=== PATIENT | male | born 1940 | race Caucasian/White ===

== ENCOUNTER 2016-03-19 19:19 | Outpatient (CLI) | payer MEDICARE | END 2016-03-19 19:20 | disposition home or self-care (01) | DX: G47.33 Obstructive sleep apnea (adult) (pediatric) (principal); G47.61 Periodic limb movement disorder; Z68.33 Body mass index [BMI] 33.0-33.9, adult ==

== ENCOUNTER 2016-03-28 10:05 | Outpatient (CLI) | payer MEDICARE | END 2016-03-28 10:06 | disposition home or self-care (01) | DX: I25.10 Atherosclerotic heart disease of native coronary artery without angina pectoris (principal); E78.5 Hyperlipidemia, unspecified; I10 Essential (primary) hypertension; R53.83 Other fatigue; G47.33 Obstructive sleep apnea (adult) (pediatric); Z98.61 Coronary angioplasty status ==

== ENCOUNTER 2016-05-22 13:11 | Outpatient (CLI) | payer MEDICARE | END 2016-05-22 13:12 | disposition home or self-care (01) | DX: G47.33 Obstructive sleep apnea (adult) (pediatric) (principal); G47.61 Periodic limb movement disorder | CPT/HCPCS: 99215; G0463 ==

== ENCOUNTER 2016-07-10 10:45 | Outpatient (CLI) | payer MEDICARE | END 2016-07-10 10:46 | disposition home or self-care (01) | DX: E29.1 Testicular hypofunction (principal) ==

== ENCOUNTER → 2016-09-30 | Outpatient (CLI) | payer MEDICARE ==
[2016-09-30 13:10] LABS: BASOPHILS # (AUTO) 0.1 10^3/uL (0.0-0.1); BASOPHILS % (AUTO) 1.2 %; EOSINOPHILS # (AUTO) 0.2 10^3/uL (0.0-0.7); EOSINOPHILS % (AUTO) 4.4 %; HCT - HEMATOCRIT 51.6 % (42.0-52.0); HGB - HEMOGLOBIN 17.6 g/dL (14.0-18.0); LYMPHOCYTES % (AUTO) 19.8 %; MEAN CORPUSCULAR HEMOGLOBIN 32.4 pg (27.0-31.0); MEAN CORPUSCULAR HGB CONC 34.1 g/dL (32.0-36.0); MEAN CORPUSCULAR VOLUME 95.2 fL (80.0-94.0); MEAN PLATELET VOLUME 7.4 fL (7.4-11.4); MONOCYTES # (AUTO) 0.3 10^3/uL (0.0-1.0); MONOCYTES % (AUTO) 5.9 %; NEUTROPHILS # (AUTO) 3.5 10^3/uL (1.5-6.6); NEUTROPHILS % (AUTO) 68.7 %; RED BLOOD COUNT 5.42 10^6/uL (4.70-6.10); RED CELL DISTRIBUTION WIDTH 12.4 % (12.0-15.0); UNCORRECTED WHITE BLOOD COUNT 5.2 x10^3/uL; WHITE BLOOD COUNT 5.2 x10^3/uL (4.8-10.8)
[2016-09-30 13:12] LABS: H. PYLORI IGG ANTIBODY Negative (Negative); HPYLORI NEG QC Negative (Negative); HPYLORI POS QC POSITIVE (Positive)
[2016-09-30 13:43] LABS: ALBUMIN/GLOBULIN RATIO 1.7 (1.0-2.2); BILIRUBIN,TOTAL 0.9 mg/dL (0.2-1.0); BUN - BLOOD UREA NITROGEN 12 mg/dL (6-20); CARBON DIOXIDE - CO2 29 mmol/L (21-32); CHLORIDE 101 mmol/L (101-111); CHOL/HDL RATIO 3.5 (<5.0); CHOLESTEROL 126 mg/dL; CREATININE 1.2 mg/dL (0.6-1.2); GFR - MDRD 59 (>89); GLUCOSE 90 mg/dL (70-100); HDL CHOLESTEROL 36 mg/dL; LDL/HDL RATIO 1.7 (<3.6); POTASSIUM 4.1 mmol/L (3.5-5.0); SODIUM 135 mmol/L (135-145); TRIGLYCERIDES 146 mg/dL; URIC ACID 7.3 mg/dL (2.6-7.2); VLDL CHOLESTEROL 29 mg/dL
== END ==
LOC: LAB.WCP 08:00
PROVIDERS: ATTEND Family Medicine
DX: I10 Essential (primary) hypertension (principal); E78.5 Hyperlipidemia, unspecified; E29.1 Testicular hypofunction; M10.9 Gout, unspecified; K21.9 Gastro-esophageal reflux disease without esophagitis
CPT/HCPCS: 36415; 80053; 80061; 84403; 84550; 85025; 87339

== ENCOUNTER 2016-12-07 10:50 | Outpatient (CLI) | payer MEDICARE | END 2016-12-07 10:51 | disposition home or self-care (01) | LOC: LAB 10:50 | PROVIDERS: ATTEND Internal Medicine Gastroenterology | DX: R23.2 Flushing (principal) | CPT/HCPCS: 82570; 83497 ==

== ENCOUNTER 2017-02-27 08:00 | Outpatient (CLI) | payer MEDICARE | END 2017-02-27 08:01 | LOC: LAB.WCP 08:00 | PROVIDERS: ATTEND Family Medicine | DX: E29.1 Testicular hypofunction (principal) | CPT/HCPCS: 36415; 84403 ==

== ENCOUNTER 2017-04-09 14:08 | Outpatient (CLI) | payer MEDICARE ==
[2017-04-09 19:40] LABS: RHEUMATOID FACTOR NEGATIVE (Negative)
[2017-04-11 13:51] LABS: ANA SCREEN NEGATIVE (NEGATIVE)
== END 2017-04-09 14:09 | disposition home or self-care (01) ==
LOC: LAB.WCP 14:08
PROVIDERS: ATTEND Internal Medicine Rheumatology
DX: M25.50 Pain in unspecified joint (principal)
CPT/HCPCS: 36415; 85651; 86038; 86140; 86200; 86430

== ENCOUNTER 2017-06-15 14:19 | Emergency (ER) | payer MEDICARE ==
[2017-06-15 14:56] LABS: BASOPHILS % (AUTO) 0.3 %; EOSINOPHILS # (AUTO) 0.5 10^3/uL (0.0-0.7); EOSINOPHILS % (AUTO) 7.7 %; HGB - HEMOGLOBIN 17.9 g/dL (14.0-18.0); LYMPHOCYTES # (AUTO) 0.9 10^3/uL (1.5-3.5); LYMPHOCYTES % (AUTO) 13.9 %; MEAN CORPUSCULAR HGB CONC 34.3 g/dL (32.0-36.0); MEAN CORPUSCULAR VOLUME 96.1 fL (80.0-94.0); MEAN PLATELET VOLUME 6.9 fL (7.4-11.4); MONOCYTES # (AUTO) 0.5 10^3/uL (0.0-1.0); MONOCYTES % (AUTO) 7.1 %; NEUTROPHILS # (AUTO) 4.5 10^3/uL (1.5-6.6); PLT - PLATELET COUNT 199 10^3/uL (130-450); RED BLOOD COUNT 5.42 10^6/uL (4.70-6.10); WHITE BLOOD COUNT 6.4 x10^3/uL (4.8-10.8)
--- NOTE | 2017-06-15 15:02 | ED Physician Documentation ---
PD HPI URI - Stated complaint Stated Complaint: CHEST HEAVINESS/COUGH - Chief complaint Chief Complaint: Cardiac - History obtained from History obtained from: Patient, Family - History of Present Illness Timing duration: Weeks (2) Timing details: Gradual onset Pain level max: 3 Pain level now: 2 Associated symptoms: Nasal congestion, Rhinorrhea, Productive cough Contributing factors: Sick contact Improves by: Rest Worsened by: Activity, Breathing Recently seen: Clinic - Additional information Additional information: 76 yo M with cough x 2 weeks. Worse over the past few days. [place] sweaty yesterday and today. Tmax 100. Seen at Urgent care yesterday and started on azithromycin. Feels like his chest is tight and heavy for the past few days as well. Has a history of cardiac stents in the past. Review of Systems Constitutional: reports: Chills Nose: reports: Rhinorrhea / runny nose, Congestion Respiratory: reports: Cough GI: denies: Vomiting, Diarrhea Skin: denies: Rash Musculoskeletal: denies: Neck pain, Back pain Neurologic: denies: Headache PD PAST MEDICAL HISTORY - Past Medical History Past Medical History: Yes Cardiovascular: Hypertension, Coronary artery disease Respiratory: None Neuro: Alzhiemer's Endocrine/Autoimmune: None GI: GERD, Diverticulitis : Kidney stones HEENT: None Psych: Depression Musculoskeletal: Osteoarthritis, Osteoporosis Derm: Rosacea - Past Surgical History General: Colonoscopy, Other Ortho: Hip replacement, Carpal Tunnel surgery, Other Cardiovascular: Coronary stent - Present Medications Home Medications: Ambulatory Orders Medication Instructions Recorded Confirmed Acyclovir 400 mg PO BID 02/07/14 04/21/14 Atorvastatin Calcium [Lipitor] 80 mg PO DAILY 02/07/14 04/21/14 Dexlansoprazole [Dexilant] 60 mg PO DAILY 02/07/14 04/21/14 Donepezil HCl [Aricept] 10 mg PO QPM 02/07/14 04/21/14 Lisinopril 40 mg PO DAILY 02/07/14 04/21/14 Metoclopramide [Reglan] 10 mg PO ACHS 02/07/14 04/21/14 Potassium Chloride 20 meq PO BID 02/07/14 04/21/14 Sertraline [Zoloft] 150 mg PO DAILY 02/07/14 04/21/14 Tramadol HCl 100 mg PO Q6HR 02/07/14 04/21/14 Vitamin E 400 unit PO BID 02/07/14 04/21/14 hydroCHLOROthiazide 12.5 mg PO DAILY 02/07/14 04/21/14 [Hydrochlorothiazide] raNITIdine [Zantac] 150 mg PO BID 02/07/14 04/21/14 Meclizine HCl 25 mg PO Q6HR PRN #20 tablet 04/21/14 Albuterol Sulf [Ventolin Hfa 1 - 2 puffs INH Q4HR PRN #1 inhaler 06/15/17 Inhaler] Benzonatate [Tessalon Perle] 100 - 200 mg PO TID PRN #30 capsule 06/15/17 - Allergies Allergies/Adverse Reactions: Allergies Allergy/AdvReac Type Severity Reaction Status Date / Time No Known Drug Allergies Allergy Verified 06/15/17 14:38 - Social History Does the pt smoke?: No Smoking Status: Never smoker Does the pt drink ETOH?: No Does the pt have substance abuse?: No - Immunizations Immunizations are current?: Yes - POLST Patient has POLST: No PD ED PE NORMAL - Vitals Vital signs reviewed: Yes - General General: Alert and oriented X 3, No acute distress, Well developed/nourished - HEENT HEENT: PERRL, Moist mucous membranes - Neck Neck: Supple, no meningeal sign - Cardiac Cardiac: RRR, Strong equal pulses - Respiratory Respiratory: No respiratory distress, Other (dimished breath sounds B) - Abdomen Abdomen: Soft, Non tender, Non distended - Derm Derm: Warm and dry, No rash - Extremities Extremities: No edema, No calf tenderness / cord - Neuro Neuro: Alert and oriented X 3 - Psych Psych: Normal mood, Normal affect Results - Vitals Vitals: Vital Signs - 24 hr 06/15/17 06/15/17 06/15/17 14:35 15:35 16:21 Temperature 36.9 C Heart Rate 72 68 69 Respiratory 15 10 L 16 Rate Blood Pressure 144/77 H 138/60 H O2 Saturation 97 95 Oxygen O2 Source Room air - EKG (time done) 1425 Rate: Rate (enter#) (70) Rhythm: NSR [place]: Normal Intervals: Normal SC QRS: Normal Ischemia: Normal ST segments Computer interpretation: Agree with computer - Labs Labs: Laboratory Tests 06/15/17 06/15/17 06/15/17 14:33 14:33 14:33 WBC 6.4 RBC 5.42 Hgb 17.9 Hct 52.1 H MCV 96.1 H MCH 33.0 H MCHC 34.3 RDW 13.0 Plt Count 199 MPV 6.9 L Neut # 4.5 Lymph # 0.9 L [place] # 0.5 Eos # 0.5 Baso # 0.0 Absolute Nucleated RBC 0.01 Nucleated RBC % 0.2 Sodium 134 L Potassium 3.9 Chloride 96 L Carbon Dioxide 31 Anion Gap 7.0 BUN 13 Creatinine 1.2 Estimated GFR (MDRD) 59 L Glucose 89 Calcium 9.2 Total Bilirubin 1.0 AST 19 ALT 18 Alkaline Phosphatase 75 Troponin I < 0.04 Total Protein 7.8 Albumin 4.3 Globulin 3.5 Albumin/Globulin Ratio 1.2 Lipase 19 L Influenza A (Rapid) Influenza B (Rapid) 06/15/17 15:25 WBC RBC Hgb Hct MCV MCH MCHC RDW Plt Count MPV Neut # Lymph # [place] # Eos # Baso # Absolute Nucleated RBC Nucleated RBC % Sodium Potassium Chloride Carbon Dioxide Anion Gap BUN Creatinine Estimated GFR (MDRD) Glucose Calcium Total Bilirubin AST ALT Alkaline Phosphatase Troponin I Total Protein Albumin Globulin Albumin/Globulin Ratio Lipase Influenza A (Rapid) Negative Influenza B (Rapid) Negative - Rads (name of study) cxr Radiology: Prelim report reviewed, EMP read contemporaneously, See rad report ( normal) PD MEDICAL DECISION MAKING - ED course Complexity details: reviewed results, re-evaluated patient, considered differential, d/w patient, d/w family ED course: Patient is a 76-year-old male who presents to the emergency department what appears to be a viral syndrome. He is well-appearing, nontoxic. Had diminished breath sounds bilaterally which improved after nebulizer treatment. No hypoxia. No evidence of acute coronary syndrome. Negative troponin. We will continue supportive care and follow-up with his doctor. Patient and family counseled regarding signs and symptoms for which I believe and urgent re- evaluation would be necessary. Patient with good understanding of and agreement to plan and is comfortable going home at this time This document was made in part using voice recognition software. While efforts are made to proofread this document, sound alike and grammatical errors may occur. Departure - Departure Disposition: 01 Home, Self Care Clinical Impression: Viral URI Condition: Good Instructions: ED URI Viral Follow-Up: Ginger Mullen MD [Primary Care Provider] - Within 1 week Prescriptions: Albuterol Sulf [Ventolin Hfa Inhaler] 1 - 2 puffs INH Q4HR PRN #1 inhaler PRN Reason: Shortness Of Air/Wheezing Benzonatate [Tessalon Perle] 100 - 200 mg PO TID PRN #30 capsule PRN Reason: Cough Comments: Return if you worsen. This should improve over the next few days. Discharge Date/Time: 06/15/17 16:23
[2017-06-15 15:03] LABS: ALBUMIN 4.3 g/dL (3.2-5.5); ALBUMIN/GLOBULIN RATIO 1.2 (1.0-2.2); CALCIUM 9.2 mg/dL (8.5-10.3); CREATININE 1.2 mg/dL (0.6-1.2); TOTAL PROTEIN 7.8 g/dL (6.7-8.2)
--- NOTE | 2017-06-15 15:13 | XRAY Preliminary Report ---
Exam: XR CHEST 1 VIEW X-RAY IMPRESSION: Negative for an acute cardiopulmonary abnormality. [facility] SITE ID: [id number]
--- NOTE | 2017-06-15 15:13 | XRAY Report ---
EXAM: CHEST RADIOGRAPHY EXAM DATE: 06/15/2017 02:55 PM. CLINICAL HISTORY: Chest pain. COMPARISON: None. TECHNIQUE: 1 view. FINDINGS: Lungs/Pleura: No consolidative process or focal pneumonia. Negative for pulmonary edema and pneumotho rax. Mediastinum: The heart size is normal. The trachea is midline. Other: None. IMPRESSION: Negative for an acute cardiopulmonary abnormality. [facility] Referring Provider Line: [phone] SITE ID: [id number]
[2017-06-15] MEDS ORDERED: SODIUM CHLORIDE 0.9% 1,000 ML IV ONE (15:14)
[2017-06-15] MEDS: IPRATROPIUM/ALBUTEROL 3 ML NEB INH STA ×2 (15:21→15:35)
[2017-06-15 16:22] VITALS: BP 138/60
== END 2017-06-15 16:23 | disposition home or self-care (01) ==
LOC: ED 14:19
DX: J06.9 Acute upper respiratory infection, unspecified (principal); B97.89 Other viral agents as the cause of diseases classified elsewhere; I10 Essential (primary) hypertension; I25.10 Atherosclerotic heart disease of native coronary artery without angina pectoris; G30.9 Alzheimer's disease, unspecified; F02.80 Dementia in other diseases classified elsewhere, unspecified severity, without behavioral disturbance, psychotic disturbance, mood disturbance, and anxiety; K21.9 Gastro-esophageal reflux disease without esophagitis; M19.90 Unspecified osteoarthritis, unspecified site
CPT/HCPCS: 36415; 71045; 80053; 83690; 84484; 85025; 87275; 87276; 93005; 94640; 94664; 96360; 99284

== ENCOUNTER 2017-07-04 08:00 | Outpatient (CLI) | payer MEDICARE | END 2017-07-04 08:01 | disposition home or self-care (01) | LOC: LAB.WCP 08:00 | PROVIDERS: ATTEND Family Medicine | DX: E29.1 Testicular hypofunction (principal) | CPT/HCPCS: 36415; 84403 ==

== ENCOUNTER 2017-07-24 09:54 | Day surgery (SDC) | payer MEDICARE ==
[2017-07-24] MEDS ORDERED: KETOROLAC 0.45% OPHTH DROPS RIGHTEYE ONE (10:35)
[2017-07-24] MEDS ORDERED: CYCLOPENTOLATE 1% OPHTH DROPS 2 ML RIGHTEYE ONE (10:35)
[2017-07-24] MEDS ORDERED: PROPARACAINE 0.5% OPHTH DROPS 15 ML RIGHTEYE ONE ×2 (10:35→11:18)
[2017-07-24] MEDS ORDERED: PHENYLEPHRINE 2.5% OPHTH 2 ML DROPS RIGHTEYE ONE (10:35)
[2017-07-24] MEDS ORDERED: LACTATED RINGERS 500 ML IV ONE (10:43)
[2017-07-24] MEDS ORDERED: BRIMONIDINE 0.2% OPHTH DROPS 5 ML OPTH ONE (11:17)
[2017-07-24] MEDS ORDERED: EPINEPHrine 1 MG/ML AMP IVP ONE (11:17)
[2017-07-24] MEDS ORDERED: TIMOLOL 0.5% OPHTH DROPS OPTH ONE (11:17)
[2017-07-24] MEDS ORDERED: BSS/LIDOCAINE/EPINEPHRINE 1 ML SYRINGE IO ONE (11:17)
[2017-07-24] MEDS ORDERED: CHONDR SULF/HYALURONATE SYRINGE IO ONE (11:17)
[2017-07-24] MEDS ORDERED: TRIAMCIN/MOXIFLOX/VANCO 1 ML VIAL IO ONE ×2 (11:18)
[2017-07-24] MEDS ORDERED: levoFLOXacin 500 MG/100 ML 500 MG/100 ML BAG IV ONE (11:22)
[2017-07-24 11:47] VITALS: BP 142/72
--- NOTE | 2017-07-24 12:10 | OPERATIVE REPORT ---
DATE OF SERVICE: 07/24/2017 Physician: Tristan Forbes MD PREOPERATIVE DIAGNOSIS: Visually significant cataract, right eye. This was his first cataract surgery. POSTOPERATIVE DIAGNOSIS: Visually significant cataract, right eye. This was his first cataract surgery. NAME OF PROCEDURE: Phacoemulsification with posterior chamber intraocular lens implant, right eye. SURGEON: Tristan Forbes MD ANESTHESIA: Monitored anesthesia care. COMPLICATIONS: None. OPERATIVE INDICATIONS: This is a 76-year-old man with progressive vision loss in the right eye due to 2+ nuclear sclerotic cataract. Best corrected visual acuity was 20/25 with glare to count fingers at 6 feet. Indications for surgery were overall decrease in vision, difficulty reading, difficulty seeing words, closed captions or game scores on TV, difficulty seeing street signs, and says he cannot see and wants his vision back. He was consented at length concerning risks and benefits of cataract surgery, after which he expressed a desire to proceed with surgery. OPERATIVE PROCEDURE: Patient was taken into OR #3 and placed under monitored anesthesia care. A surgical timeout was conducted confirming correct patient, correct procedure, and correct surgical site. He was given topical anesthesia and prepped and draped in the usual sterile fashion. The eye was entered at the 12 and 9 o'clock positions. Intracameral Shugarcaine was injected into the anterior chamber, followed by Viscoat. A continuous-tear curvilinear capsulorrhexis was performed. The nucleus was hydrodissected and phacoemulsified. The cortex was evacuated using automated infusion and aspiration. Provisc was injected in the capsular bag, and a 20.5 diopter intraocular lens was inserted in the bag. Approximately 0.7 mL of a mixture of triamcinolone and moxifloxacin was injected subconjunctivally in the superior quadrant. An additional 0.4 mL of vancomycin was also injected into the same space for infection and inflammation prophylaxis. I and A was used to evacuate the viscoelastic materials. The eye was inflated to physiologic pressure using balanced salt solution and found to be watertight. The patient was taken from the operating room in good condition and given postop instructions. TD: 07/24/2017 11:43
== END 2017-07-24 09:55 | disposition home or self-care (01) ==
LOC: SDS 09:54
PROVIDERS: ATTEND Ophthalmology
PROC: 08RJ3JZ Replacement of Right Lens with Synthetic Substitute, Percutaneous Approach (ICD-10-PCS; principal; 2017-07-24 11:00)
DX: H25.11 Age-related nuclear cataract, right eye (principal); I10 Essential (primary) hypertension; G30.9 Alzheimer's disease, unspecified; F02.80 Dementia in other diseases classified elsewhere, unspecified severity, without behavioral disturbance, psychotic disturbance, mood disturbance, and anxiety; G47.33 Obstructive sleep apnea (adult) (pediatric)
CPT/HCPCS: 66984; A9270; V2632

== ENCOUNTER 2017-09-25 06:51 | Day surgery (SDC) | payer MEDICARE ==
[~2017-09-25 06:51] MED LIST: CYCLOPENTOLATE 1% OPHTH DROPS 2 ML ONE; KETOROLAC 0.45% OPHTH DROPS ONE; LACTATED RINGERS 500 ML IV ONE; PHENYLEPHRINE 2.5% OPHTH 2 ML DROPS ONE; PROPARACAINE 0.5% OPHTH DROPS 15 ML ONE
[2017-09-25] MEDS ORDERED: PHENYLEPHRINE 2.5% OPHTH 2 ML DROPS LEFTEYE ONE (07:10)
[2017-09-25] MEDS ORDERED: PROPARACAINE 0.5% OPHTH DROPS 15 ML LEFTEYE ONE ×2 (07:10→08:10)
[2017-09-25] MEDS ORDERED: CYCLOPENTOLATE 1% OPHTH DROPS 2 ML LEFTEYE ONE (07:10)
[2017-09-25] MEDS ORDERED: KETOROLAC 0.45% OPHTH DROPS LEFTEYE ONE (07:10)
[2017-09-25] MEDS ORDERED: TRIAMCIN/MOXIFLOX OPHTHALMIC 0.6 ML VIAL IO ONE (07:34)
[2017-09-25] MEDS ORDERED: TIMOLOL 0.5% OPHTH DROPS ONE (07:34)
[2017-09-25] MEDS ORDERED: EPINEPHrine 1 MG/ML AMP ONE (07:34)
[2017-09-25] MEDS ORDERED: BSS/LIDOCAINE/EPINEPHRINE 1 ML SYRINGE ONE (07:34)
[2017-09-25] MEDS ORDERED: BRIMONIDINE 0.2% OPHTH DROPS 5 ML ONE (07:34)
[2017-09-25] MEDS ORDERED: VANCOMYCIN OPHTHALMI 8MG/0.8ML 8 MG/0.8 ML SYRINGE IO ONE (07:34)
[2017-09-25] MEDS ORDERED: MIDAZOLAM 2 MG/2 ML VIAL IVP ONE (08:00)
[2017-09-25] MEDS ORDERED: BRIMONIDINE 0.2% OPHTH DROPS 5 ML OPTH ONE (08:09)
[2017-09-25] MEDS ORDERED: EPINEPHrine 1 MG/ML AMP IR ONE (08:09)
[2017-09-25] MEDS ORDERED: TIMOLOL 0.5% OPHTH DROPS OPTH ONE (08:10)
[2017-09-25] MEDS ORDERED: CHONDR SULF/HYALURONATE SYRINGE IO ONE (08:10)
[2017-09-25] MEDS ORDERED: BSS/LIDOCAINE/EPINEPHRINE 1 ML SYRINGE IO ONE ×2 (08:10)
[2017-09-25 08:41] VITALS: BP 147/72
--- NOTE | 2017-09-25 09:00 | OPERATIVE REPORT ---
DATE OF SERVICE: 09/25/2017 Physician: Tristan Forbes MD PREOPERATIVE DIAGNOSIS: Visually significant cataract, left eye. Cataract surgery was performed on the right eye on 24 Jul 2017. POSTOPERATIVE DIAGNOSIS: Visually significant cataract, left eye. Cataract surgery was performed on the right eye on 24 Jul 2017. PROCEDURE: Phacoemulsification with posterior chamber intraocular lens implant, left eye. SURGEON: Tristan Forbes MD ANESTHESIA: Monitored anesthesia care. COMPLICATIONS: None. OPERATIVE INDICATIONS: This is a 76-year-old man with progressive vision loss in the left eye due to 2+ nuclear sclerotic cataract. Best corrected visual acuity was 20/20 with glare to 20/50 in the left eye. Indications for surgery were overall decrease in vision, difficulty reading, difficulty with glare or bright lights in any situation. Also, has a hard time seeing in the home and dark and holes. He was consented at length concerning risks and benefits of cataract surgery after which he expressed a desire to proceed with surgery. OPERATIVE PROCEDURE: The patient was taken to OR #3 and placed under monitored anesthesia care. A surgical timeout was conducted confirming correct patient, correct procedure, and correct surgical site. He was given topical anesthesia and prepped and draped in the usual sterile fashion. The eye was entered at the 6 and 3 o'clock positions. Intracameral Shugarcaine was injected into the anterior chamber, followed by Viscoat. A continuous-tear curvilinear capsulorrhexis was performed. The nucleus was hydrodissected and phacoemulsified. Cortex was evacuated using automated infusion and aspiration. Provisc was injected in the capsular bag, and a 21.5 diopter intraocular lens inserted in the bag. Approximately 0.7 mL of a mixture of triamcinolone, moxifloxacin, and vancomycin was injected subconjunctivally in the superior quadrant for infection and inflammation prophylaxis. I and A, was used to evacuate the viscoelastic material. His eye was inflated to physiologic pressure using balanced salt solution and found to be watertight. The patient was taken from the operating room in good condition and given postop instructions. TD: 09/25/2017 08:46
== END 2017-09-25 06:52 | disposition home or self-care (01) ==
LOC: SDS 06:51
PROVIDERS: ATTEND Ophthalmology
PROC: 08RK3JZ Replacement of Left Lens with Synthetic Substitute, Percutaneous Approach (ICD-10-PCS; principal; 2017-09-25 08:00)
DX: H25.12 Age-related nuclear cataract, left eye (principal); I10 Essential (primary) hypertension; C61 Malignant neoplasm of prostate; G30.9 Alzheimer's disease, unspecified; F02.80 Dementia in other diseases classified elsewhere, unspecified severity, without behavioral disturbance, psychotic disturbance, mood disturbance, and anxiety; I25.10 Atherosclerotic heart disease of native coronary artery without angina pectoris; G47.33 Obstructive sleep apnea (adult) (pediatric)
CPT/HCPCS: 66984; A9270; J3490; V2632

== ENCOUNTER 2018-06-13 00:27 | Outpatient (CLI) | payer MEDICARE ==
--- NOTE | 2018-06-13 01:34 | Ultrasound Report ---
Reason: SCROTAL PAIN Procedure Date: 06/13/2018 Accession Number: [id number] / [id number] Procedure: US - Testicle w/Doppler CPT Code: FULL RESULT: EXAM: SCROTAL ULTRASOUND EXAM DATE: 06/13/2018 12:49 AM. CLINICAL HISTORY: SCROTAL PAIN. COMPARISON: 07/02/2010, 10/20/2013. TECHNIQUE: Real-time scanning was performed with static images obtained. Color-flow images were utilized. FINDINGS: Right: Testis: 2.3 x 1.7 x 1.4 cm. Normal size and echotexture. Stable punctate calcifications. No mass or abnormal blood flow. Epididymis: 1.1 x 0.9 x 0.9 cm. Normal size and echotexture. No mass or abnormal blood flow. Hydrocele: Small Varicocele: None. Stable epididymal appendix. Left: Testis: 2.7 x 1.8 x 1.5 cm. Normal size and echotexture. Stable punctate calcifications. No mass or abnormal blood flow. Epididymis: 1.3 x 1.2 x 0.7 cm. Normal size and echotexture. No mass or abnormal blood flow. Hydrocele: None. Varicocele: None. IMPRESSION: Normal scrotal ultrasound. No significant interval change. [facility] The call report notification system was initiated by Dr. Tristan Garland at 01:23 AM on 06/13/2018. Provider could not be contacted at time of dictation.
== END 2018-06-13 00:28 | disposition home or self-care (01) ==
LOC: DI 00:27
PROVIDERS: ATTEND Family Medicine
DX: N50.82 Scrotal pain (principal)
CPT/HCPCS: 76870; 93975

== ENCOUNTER 2018-07-09 11:43 | Outpatient (CLI) | payer MEDICARE | END 2018-07-09 11:44 | disposition home or self-care (01) | LOC: LAB.WCP 11:43 | PROVIDERS: ATTEND Family Medicine | DX: E29.1 Testicular hypofunction (principal) | CPT/HCPCS: 36415; 84403 ==

== ENCOUNTER 2018-08-11 09:30 | Outpatient (CLI) | payer MEDICARE | END 2018-08-11 09:31 | disposition home or self-care (01) | LOC: LAB.WCP 09:30 | PROVIDERS: ATTEND Family Medicine | DX: E29.1 Testicular hypofunction (principal) | CPT/HCPCS: 36415; 84403 ==

== ENCOUNTER 2018-10-29 08:00 | Outpatient (CLI) | payer MEDICARE ==
[2018-10-29 19:32] LABS: BASOPHILS # (AUTO) 0.1 10^3/uL (0.0-0.1); EOSINOPHILS # (AUTO) 0.2 10^3/uL (0.0-0.7); EOSINOPHILS % (AUTO) 4.8 %; HGB - HEMOGLOBIN 18.1 g/dL (14.0-18.0); MEAN CORPUSCULAR HEMOGLOBIN 32.1 pg (27.0-31.0); MEAN CORPUSCULAR HGB CONC 32.7 g/dL (32.0-36.0); MEAN CORPUSCULAR VOLUME 98.2 fL (80.0-94.0); MONOCYTES # (AUTO) 0.4 10^3/uL (0.0-1.0); MONOCYTES % (AUTO) 8.2 %; NEUTROPHILS # (AUTO) 3.3 10^3/uL (1.5-6.6); NEUTROPHILS % (AUTO) 66.8 %; PLT - PLATELET COUNT 191 10^3/uL (130-450); RED BLOOD COUNT 5.64 10^6/uL (4.70-6.10); RED CELL DISTRIBUTION WIDTH 13.1 % (12.0-15.0)
[2018-10-29 19:35] LABS: ALBUMIN 4.1 g/dL (3.2-5.5); ALBUMIN/GLOBULIN RATIO 1.3 (1.0-2.2); ALKALINE PHOSPHATASE 70 IU/L (42-121); ALT ALANINE AMINOTRANSFERASE 20 IU/L (10-60); AST ASPARTATE AMINOTRANSFERASE 21 IU/L (10-42); BILIRUBIN,TOTAL 1.5 mg/dL (0.2-1.0); BUN - BLOOD UREA NITROGEN 11 mg/dL (6-20); CALCIUM 9.2 mg/dL (8.5-10.3); CARBON DIOXIDE - CO2 33 mmol/L (21-32); CHLORIDE 96 mmol/L (101-111); CHOL/HDL RATIO 3.3 (<5.0); CHOLESTEROL 111 mg/dL; CREATININE 1.1 mg/dL (0.6-1.2); GFR - MDRD 65 (>89); GLUCOSE 90 mg/dL (70-100); HDL CHOLESTEROL 34 mg/dL; LDL CHOLESTEROL,CALCULATED 59 mg/dL; LDL/HDL RATIO 1.7 (<3.6); SODIUM 138 mmol/L (135-145); TOTAL PROTEIN 7.2 g/dL (6.7-8.2); VLDL CHOLESTEROL 18 mg/dL
== END 2018-10-29 23:59 | disposition home or self-care (01) ==
LOC: LAB.WCP 08:00
PROVIDERS: ATTEND Family Medicine
DX: D64.9 Anemia, unspecified (principal); I10 Essential (primary) hypertension; F32.9 Major depressive disorder, single episode, unspecified; I25.10 Atherosclerotic heart disease of native coronary artery without angina pectoris; E78.5 Hyperlipidemia, unspecified; G30.9 Alzheimer's disease, unspecified; E29.1 Testicular hypofunction
CPT/HCPCS: 36415; 80053; 80061; 83721; 84403; 84443; 85025

== ENCOUNTER 2018-12-01 08:00 | Outpatient (CLI) | payer MEDICARE ==
[2018-12-01 19:31] LABS: CALCIUM 9.1 mg/dL (8.5-10.3); CREATININE 1.1 mg/dL (0.6-1.2)
== END 2018-12-01 08:01 | disposition home or self-care (01) ==
LOC: LAB.WCP 08:00
PROVIDERS: ATTEND Internal Medicine Interventional Cardiology
DX: I25.10 Atherosclerotic heart disease of native coronary artery without angina pectoris (principal)
CPT/HCPCS: 36415; 80048

== ENCOUNTER 2019-04-28 13:05 | Outpatient (CLI) | payer MEDICARE ==
--- NOTE | 2019-04-29 16:39 | Ultrasound Report ---
Reason: SCROTAL PAIN Procedure Date: 04/28/2019 Accession Number: [id number] / [id number] Procedure: US - Testicle CPT Code: Final Report FULL RESULT: EXAM: SCROTAL ULTRASOUND EXAM DATE: 04/28/2019 02:23 PM. CLINICAL HISTORY: SCROTAL PAIN. COMPARISON: TESTICLE W/DOPPLER 06/13/2018 12:49 AM. TECHNIQUE: Real-time scanning was performed with static images obtained. Color-flow images were utilized. FINDINGS: Right: Testis: 2.6 x 1.5 x 1.9 cm. Small size. There are punctate calcifications within the right testicle. No evidence of mass. Normal blood flow. Epididymis: Normal size and echotexture. No mass or abnormal blood flow. Hydrocele: Small. Varicocele: None. Left: Testis: 2.7 x 1.4 x 1.8 cm. Small size. There are several punctate calcifications within the left testicle. No evidence of mass. Normal blood flow. Epididymis: Normal size and echotexture. No mass or abnormal blood flow. Hydrocele: None. Varicocele: None. IMPRESSION: 1. 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 2. The testes demonstrate no evidence of mass or torsion. 3. No sonographic findings to account for the patient's presentation. [facility]
== END 2019-04-28 13:06 | disposition home or self-care (01) ==
LOC: DI 13:05
PROVIDERS: ATTEND Urology
DX: N50.82 Scrotal pain (principal); N50.89 Other specified disorders of the male genital organs
CPT/HCPCS: 76870

== ENCOUNTER 2020-03-28 12:35 | Outpatient (CLI) | payer MEDICARE ==
[2020-03-28 18:10] LABS: BASOPHILS % (AUTO) 0.6 %; EOSINOPHILS # (AUTO) 0.3 10^3/uL (0.0-0.7); EOSINOPHILS % (AUTO) 5.4 %; HGB - HEMOGLOBIN 13.2 g/dL (14.0-18.0); LYMPHOCYTES # (AUTO) 1.1 10^3/uL (1.5-3.5); LYMPHOCYTES % (AUTO) 22.5 %; MEAN CORPUSCULAR HEMOGLOBIN 32.5 pg (27.0-31.0); MEAN CORPUSCULAR HGB CONC 32.4 g/dL (32.0-36.0); MEAN CORPUSCULAR VOLUME 100.5 fL (80.0-94.0); MEAN PLATELET VOLUME 9.5 fL (7.4-11.4); MONOCYTES # (AUTO) 0.4 10^3/uL (0.0-1.0); MONOCYTES % (AUTO) 8.7 %; NEUTROPHILS # (AUTO) 3.1 10^3/uL (1.5-6.6); NEUTROPHILS % (AUTO) 62.8 %; PLT - PLATELET COUNT 193 10^3/uL (130-450); RED BLOOD COUNT 4.06 10^6/uL (4.70-6.10); RED CELL DISTRIBUTION WIDTH 12.3 % (12.0-15.0); WHITE BLOOD COUNT 4.9 x10^3/uL (4.8-10.8)
[2020-03-28 18:54] LABS: ALBUMIN 4.2 g/dL (3.2-5.5); ALBUMIN/GLOBULIN RATIO 1.7 (1.0-2.2); ALKALINE PHOSPHATASE 56 IU/L (42-121); ALT ALANINE AMINOTRANSFERASE 23 IU/L (10-60); AST ASPARTATE AMINOTRANSFERASE 19 IU/L (10-42); BILIRUBIN,TOTAL 0.6 mg/dL (0.2-1.0); BUN - BLOOD UREA NITROGEN 12 mg/dL (6-20); CALCIUM 9.5 mg/dL (8.5-10.3); CARBON DIOXIDE - CO2 30 mmol/L (21-32); CHLORIDE 102 mmol/L (101-111); CHOL/HDL RATIO 3.8 (<5.0); CHOLESTEROL 142 mg/dL; GLUCOSE 92 mg/dL (70-100); HDL CHOLESTEROL 37 mg/dL; LDL CHOLESTEROL,CALCULATED 61 mg/dL; LDL/HDL RATIO 1.6 (<3.6); TOTAL PROTEIN 6.7 g/dL (6.7-8.2); VLDL CHOLESTEROL 44 mg/dL
== END 2020-03-28 23:59 | disposition home or self-care (01) ==
LOC: LAB.WCP 12:35
PROVIDERS: ATTEND Nurse Practitioner
DX: R26.81 Unsteadiness on feet (principal); D75.1 Secondary polycythemia; D64.9 Anemia, unspecified; F32.9 Major depressive disorder, single episode, unspecified; G30.9 Alzheimer's disease, unspecified; G25.81 Restless legs syndrome
CPT/HCPCS: 36415; 80053; 80061; 83721; 84443; 85025

== ENCOUNTER 2020-05-01 17:01 | Outpatient (CLI) | payer MEDICARE ==
--- NOTE | 2020-05-02 09:30 | MRI Report ---
PROCEDURE: Lumbar Spine W/O INDICATIONS: URINARY RETENTION TECHNIQUE: Noncontrast sagittal T1 spin echo and T2 fast echo, sagittal STIR, axial T1 and T2 fast spin echo thr ough the lumbar spine. In cases with scoliosis, additional coronal T2 fast spin echo may be performe d. COMPARISON: 05/01/2020 FINDINGS: Image quality: Excellent. Alignment and Curvature: No plain films are available for comparison. Thus, for numbering purposes, 5 lumbar type vertebral bodies will be presumed for the current report. This should be confirmed with plain film correlation prior to any lumbar spinal intervention. There is loss of normal lumbar lordo sis. There is mild grade 1 anterolisthesis of L4 on L5. Bone Marrow: Marrow is of normal overall signal. No acute vertebral body compression fractures. Mi ld reactive signal within the end plates adjacent to the L1-L2, L2-L3, L3-L4, L4-L5, and L5-S1 interv ertebral discs. Spinal Cord: Conus medullaris terminates at the mid L1 level. Visualized cord demonstrates normal s ignal and size. Paraspinous Soft Tissues: No paravertebral masses. T12-L1: Mild disc height loss and desiccation. Mild facet and ligament flavum hypertrophy. Mild epid ural lipomatosis. Mild canal stenosis. Mild bilateral foraminal stenosis. No change. L1-L2: Moderate disc desiccation. Mild disc height loss and diffuse disc bulge. Mild facet and lig ament flavum hypertrophy. Mild epidural lipomatosis. Mild canal stenosis. Mild bilateral foraminal st enosis. No change. L2-L3: Moderate disc desiccation. Mild disc height loss and diffuse disc bulge. Mild facet and lig ament flavum hypertrophy. Mild epidural lipomatosis. Mild canal stenosis. Mild bilateral foraminal st enosis. No change. L3-L4: Moderate disc desiccation. Mild disc height loss and diffuse disc bulge. Moderate facet and ligament flavum hypertrophy. Mild epidural lipomatosis. There is increased, severe canal stenosis. Th ere is no change in moderate subarticular foraminal stenosis bilaterally. L4-L5: Moderate disc desiccation. Mild disc height loss and diffuse disc bulge. Moderate facet and ligament flavum hypertrophy. Mild epidural lipomatosis. No change in severe canal stenosis. There is moderate to severe bilateral foraminal stenosis with minimal L4 nerve root compression bilaterally. N o change. L5-S1: Moderate disc height loss and desiccation. Mild diffuse disc bulge. Mild facet and ligament flavum hypertrophy. Mild canal stenosis. Severe bilateral foraminal stenosis with bilateral L5 nerve root compression. No change. IMPRESSION: 1. Multilevel degenerative disc and facet disease, in addition to epidural lipomatosis and ligamentum flavum hypertrophy. 2. Multilevel canal stenoses, worst at L3-L4 and L4-L5 where there are severe canal stenoses as descr ibed above. 3. Multilevel foraminal stenoses, worst at L4-L5 and L5-S1 where there is associated intraforaminal n erve root compression. Recommend correlation with clinical symptoms to ascertain relevance of these f indings. Reviewed by: Zulma Singh MD on 05/02/2020 8:29 AM [place] Approved by: Zulma Singh MD on 05/02/2020 8:29 AM [facility] Station ID: [id number]
== END 2020-05-01 17:02 | disposition home or self-care (01) ==
LOC: DI 17:01
PROVIDERS: ATTEND Nurse Practitioner
DX: M47.816 Spondylosis without myelopathy or radiculopathy, lumbar region (principal); M51.36 Other intervertebral disc degeneration, lumbar region; M48.061 Spinal stenosis, lumbar region without neurogenic claudication; M51.35 Other intervertebral disc degeneration, thoracolumbar region; M48.05 Spinal stenosis, thoracolumbar region; M47.815 Spondylosis without myelopathy or radiculopathy, thoracolumbar region; M47.817 Spondylosis without myelopathy or radiculopathy, lumbosacral region; M48.07 Spinal stenosis, lumbosacral region; M51.17 Intervertebral disc disorders with radiculopathy, lumbosacral region

== ENCOUNTER 2021-01-17 09:29 | Outpatient (CLI) | payer MEDICARE ==
[2021-01-17 12:44] LABS: ALBUMIN 3.9 g/dL (3.2-5.5); ALBUMIN/GLOBULIN RATIO 1.4 (1.0-2.2); ALKALINE PHOSPHATASE 80 IU/L (42-121); ALT ALANINE AMINOTRANSFERASE 15 IU/L (10-60); AST ASPARTATE AMINOTRANSFERASE 16 IU/L (10-42); BILIRUBIN,TOTAL 0.9 mg/dL (0.2-1.0); BUN - BLOOD UREA NITROGEN 11 mg/dL (6-20); CARBON DIOXIDE - CO2 33 mmol/L (21-32); CHLORIDE 96 mmol/L (101-111); CHOL/HDL RATIO 3.5 (<5.0); CHOLESTEROL 134 mg/dL; CREATININE 1.1 mg/dL (0.6-1.2); GFR - MDRD 64 (>89); GLUCOSE 98 mg/dL (70-100); HDL CHOLESTEROL 38 mg/dL; LDL CHOLESTEROL,CALCULATED 74 mg/dL; LDL/HDL RATIO 1.9 (<3.6); POTASSIUM 4.1 mmol/L (3.5-5.0); SODIUM 135 mmol/L (135-145); TOTAL PROTEIN 6.7 g/dL (6.7-8.2); TRIGLYCERIDES 108 mg/dL; URIC ACID 6.3 mg/dL (2.6-7.2); VLDL CHOLESTEROL 22 mg/dL
[2021-01-17 12:51] LABS: THYROID STIMULATING HORMONE 1.77 uIU/mL (0.34-5.60)
[2021-01-17 13:16] LABS: BASOPHILS % (AUTO) 0.6 %; EOSINOPHILS # (AUTO) 0.2 10^3/uL (0.0-0.7); EOSINOPHILS % (AUTO) 6.6 %; HCT - HEMATOCRIT 41.3 % (42.0-52.0); HGB - HEMOGLOBIN 13.3 g/dL (14.0-18.0); LYMPHOCYTES # (AUTO) 0.9 10^3/uL (1.5-3.5); LYMPHOCYTES % (AUTO) 23.7 %; MEAN CORPUSCULAR HEMOGLOBIN 30.6 pg (27.0-31.0); MEAN CORPUSCULAR HGB CONC 32.2 g/dL (32.0-36.0); MEAN CORPUSCULAR VOLUME 95.2 fL (80.0-94.0); MEAN PLATELET VOLUME 9.1 fL (7.4-11.4); MONOCYTES # (AUTO) 0.3 10^3/uL (0.0-1.0); MONOCYTES % (AUTO) 7.7 %; NEUTROPHILS # (AUTO) 2.2 10^3/uL (1.5-6.6); NEUTROPHILS % (AUTO) 61.1 %; PLT - PLATELET COUNT 207 10^3/uL (130-450); RED BLOOD COUNT 4.34 10^6/uL (4.70-6.10); RED CELL DISTRIBUTION WIDTH 12.2 % (12.0-15.0); WHITE BLOOD COUNT 3.6 x10^3/uL (4.8-10.8)
== END 2021-01-17 23:59 | disposition home or self-care (01) ==
LOC: LAB.WCP 09:29
PROVIDERS: ATTEND Internal Medicine
DX: I25.10 Atherosclerotic heart disease of native coronary artery without angina pectoris (principal); M10.9 Gout, unspecified; I10 Essential (primary) hypertension; F32.A Depression, unspecified
CPT/HCPCS: 36415; 80053; 80061; 83721; 84443; 84550; 85025

== ENCOUNTER 2021-03-06 12:52 | Outpatient (CLI) | payer MEDICARE | END 2021-03-06 12:53 | disposition home or self-care (01) | LOC: RT 12:52 | PROVIDERS: ATTEND Internal Medicine | DX: R05.3 Chronic cough (principal); Z87.09 Personal history of other diseases of the respiratory system; Z77.22 Contact with and (suspected) exposure to environmental tobacco smoke (acute) (chronic) | CPT/HCPCS: 94010 ==

== ENCOUNTER 2021-04-12 13:12 | Outpatient (CLI) | payer MEDICARE ==
--- NOTE | 2021-04-12 16:21 | XRAY Report ---
PROCEDURE: Chest 2 View X-Ray INDICATIONS: CHRONIC COUGH TECHNIQUE: 2 view(s) of the chest. COMPARISON: 06/15/2017 FINDINGS: Surgical changes and devices: None. Lungs and pleura: No pleural effusions or pneumothorax. Lungs are clear. Mediastinum: Mediastinal contours are normal. Heart size is normal. Bones and chest wall: No suspicious bony abnormalities. Soft tissues appear unremarkable. IMPRESSION: No acute process. Reviewed by: Zulma Singh MD on 04/12/2021 4:19 PM PST Approved by: Zulma Singh MD on 04/12/2021 4:19 PM PST Station ID: [id number]
== END 2021-04-12 13:13 | disposition home or self-care (01) ==
LOC: DI.N 13:12
PROVIDERS: ATTEND Internal Medicine
DX: R05.3 Chronic cough (principal)

== ENCOUNTER 2021-07-03 09:28 | Outpatient (CLI) | payer MEDICARE ==
--- NOTE | 2021-07-03 16:36 | CT Report ---
PROCEDURE: Sinuses INDICATIONS: COUGH, PANSINUSITIS TECHNIQUE: Noncontrast 3.0 mm axial images acquired from the frontal sinuses to the mid-sella, with coronal and sagittal reformats. For radiation dose reduction, the following was used: automated exposure control , adjustment of mA and/or kV according to patient size. COMPARISON: None. FINDINGS: Image quality: Excellent. Maxillary Sinuses: No bony remodeling or destruction. Sinuses are clear. Ethmoid Air Cells: No bony remodeling or destruction. Sinuses are clear. Sphenoid Sinuses: No bony remodeling or destruction. Sinuses are clear. Frontal Sinuses: No bony remodeling or destruction. Sinuses are clear. Ostiomeatal Complexes: Ostiomeatal complexes are patent. No Gavino cells. Miscellaneous: Visualized intra-orbital contents are normal. No kimmy bullosa. Moderate nasal sept al deviation to the right with prominent spurring. IMPRESSION: No findings of acute or chronic sinusitis. Moderate nasal septal deviation to the right with prominen t spurring. Reviewed by: David Velasco MD on 07/03/2021 4:35 PM PDT Approved by: David Velasco MD on 07/03/2021 4:35 PM PDT Station ID: [id number]
== END 2021-07-03 09:29 | disposition home or self-care (01) ==
LOC: DI 09:28
PROVIDERS: ATTEND Otolaryngology
DX: R05.9 Cough, unspecified (principal); J32.4 Chronic pansinusitis; R09.82 Postnasal drip; J34.2 Deviated nasal septum

== ENCOUNTER 2022-06-11 09:34 | Outpatient (CLI) | payer MEDICARE ==
[2022-06-11 09:48] LABS: BASOPHILS % (AUTO) 0.7 %; EOSINOPHILS # (AUTO) 0.2 10^3/uL (0.0-0.7); HGB - HEMOGLOBIN 14.4 g/dL (14.0-18.0); LYMPHOCYTES % (AUTO) 22.6 %; MEAN CORPUSCULAR HEMOGLOBIN 32.1 pg (27.0-31.0); MEAN CORPUSCULAR HGB CONC 33.5 g/dL (32.0-36.0); MEAN CORPUSCULAR VOLUME 95.8 fL (80.0-94.0); MEAN PLATELET VOLUME 8.7 fL (7.4-11.4); MONOCYTES # (AUTO) 0.3 10^3/uL (0.0-1.0); MONOCYTES % (AUTO) 7.4 %; NEUTROPHILS % (AUTO) 64.1 %; PLT - PLATELET COUNT 182 10^3/uL (130-450); RED BLOOD COUNT 4.49 10^6/uL (4.70-6.10); RED CELL DISTRIBUTION WIDTH 12.1 % (12.0-15.0); WHITE BLOOD COUNT 4.6 x10^3/uL (4.8-10.8)
[2022-06-11 10:21] LABS: ALBUMIN 4.1 g/dL (3.2-5.5); ALBUMIN/GLOBULIN RATIO 1.6 (1.0-2.2); ALKALINE PHOSPHATASE 65 IU/L (42-121); ALT ALANINE AMINOTRANSFERASE 18 IU/L (10-60); AST ASPARTATE AMINOTRANSFERASE 23 IU/L (10-42); BILIRUBIN,TOTAL 0.8 mg/dL (0.2-1.0); BUN - BLOOD UREA NITROGEN 11 mg/dL (6-20); CARBON DIOXIDE - CO2 29 mmol/L (21-32); CHLORIDE 102 mmol/L (101-111); CHOL/HDL RATIO 2.9 (<5.0); CHOLESTEROL 140 mg/dL; GFR - MDRD 72 (>89); GLUCOSE 99 mg/dL (70-100); HDL CHOLESTEROL 48 mg/dL; LDL CHOLESTEROL,CALCULATED 76 mg/dL; LDL/HDL RATIO 1.6 (<3.6); POTASSIUM 4.2 mmol/L (3.5-5.0); SODIUM 138 mmol/L (135-145); TOTAL PROTEIN 6.7 g/dL (6.7-8.2); TRIGLYCERIDES 81 mg/dL; VLDL CHOLESTEROL 16 mg/dL
[2022-06-11 10:33] LABS: THYROID STIMULATING HORMONE 2.26 uIU/mL (0.34-5.60)
== END 2022-06-11 09:35 | disposition home or self-care (01) ==
LOC: LAB 09:34
PROVIDERS: ATTEND Internal Medicine
DX: I10 Essential (primary) hypertension (principal); E78.5 Hyperlipidemia, unspecified; F32.A Depression, unspecified
CPT/HCPCS: 36415; 80053; 80061; 83721; 84443; 85025

== ENCOUNTER 2022-09-06 10:40 | Outpatient (CLI) | payer MEDICARE ==
--- NOTE | 2022-09-06 11:34 | XRAY Report ---
PROCEDURE: Cervical Spine Comp w/Flex/Ext INDICATIONS: CERVICAL RADICULOPATHY TECHNIQUE: 7 views of the cervical spine were acquired. COMPARISON: None. FINDINGS: Bones: Moderate to severe degenerative changes. There is reversal of normal cervical lordosis. No acu te vertebral body height loss or traumatic subluxation. Chronic appearing calcifications seen at the supraspinatus ligament at the lower cervical spine. There is limited range of motion. No dynamic instability. Oblique images show at least moderate narro wing of the neural foramen bilaterally in the mid to lower cervical spine. Normal C1 on C2 alignment on the odontoid view. Soft tissues: No pathologic prevertebral soft tissue swelling. No suspicious calcifications. IMPRESSION: Moderate to severe spondylosis. If there is high concern for further derangement, consider MRI evalua tion. Reviewed by: Rishi Riggins MD on 09/06/2022 11:32 AM PDT Approved by: Rishi Riggins MD on 09/06/2022 11:32 AM PDT Station ID: [id number]
--- NOTE | 2022-09-06 11:35 | XRAY Report ---
PROCEDURE: Thoracic Spine 3 View INDICATIONS: CERVICAL RADICULOPATHY,BACK PX,THORACIC REGION TECHNIQUE: 3 views of the thoracic spine were acquired. COMPARISON: None. FINDINGS: Bones: Cervical spine findings separately dictated. Mild to moderate spondylosis of the thoracic spin e, with osteophytes, disc space height loss, and facet arthropathy. No acute vertebral body height lo ss or subluxation identified. Slight rightward mid thoracic spinal curvature is present. Soft tissues: No suspicious calcifications. Above average fecal loading in the partially visualized u pper abdomen. Possible lung granulomas, partially seen. IMPRESSION: Mild to moderate thoracic spondylosis. If there is high concern for further derangement, consider MRI evaluation. Reviewed by: Rishi Riggins MD on 09/06/2022 11:33 AM PDT Approved by: Rishi Riggins MD on 09/06/2022 11:33 AM PDT Station ID: [id number]
== END 2022-09-06 10:41 | disposition home or self-care (01) ==
LOC: DI 10:40
PROVIDERS: ATTEND Internal Medicine
DX: M47.812 Spondylosis without myelopathy or radiculopathy, cervical region (principal); M47.814 Spondylosis without myelopathy or radiculopathy, thoracic region

== ENCOUNTER 2022-09-12 08:52 | Outpatient (CLI) | payer MEDICARE ==
--- NOTE | 2022-09-12 18:07 | MRI Report ---
PROCEDURE: CERVICAL SPINE WO INDICATIONS: CERVICAL RADICULOPATHY TECHNIQUE: Noncontrast sagittal T1 spin echo and T2 fast spin echo, sagittal STIR, foraminal oblique sagittal T2 fast spin echo, and axial gradient echo or T2 fast spin echo through the cervical spine. COMPARISON: 05/25/2014 FINDINGS: Image quality: Motion artifact is noted. Alignment and Curvature: There is minimal C7-T1 anterolisthesis. There is overall straightening of t he normal cervical lordosis. Bone Marrow: Marrow demonstrates normal overall signal. Spinal Cord: Visualized spinal cord has normal size and signal. No cerebellar tonsillar herniation. Paraspinous Soft Tissues: No paravertebral masses. Prevertebral soft tissues are normal in thicknes s. C2-C3: Mild loss of disc height and disc signal are seen. Moderate disc osteophyte complex is seen. There is moderate to prominent right-sided and [id number] left-sided facet hypertrophy. Ther e is moderate to severe right-sided and moderate left-sided neuroforaminal narrowing. Mild to moderat e central canal narrowing is seen. C3-C4: At least moderate loss of disc height and disc signal can be seen. Reactive marrow endplate changes are seen, which are hyperintense on T1-weighted and T2-weighted imaging, without significant increased STIR signal. 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 At least moderate disc osteophyte complex is seen at this level. There is a central disc osteophyte protrusion. Uncovertebral joint hypertrophy is seen at this level. Moderate facet hyper trophy is seen. There is moderate to severe bilateral neuroforaminal narrowing seen at this level. M oderate central canal narrowing is seen. Associated mass effect is seen upon the ventral spinal cord . C4-C5: Moderate loss of disc height and signal are seen. At least moderate disc osteophyte complex i s seen. There is a central disc osteophyte protrusion. Uncovertebral joint hypertrophy is seen at th is level. At least moderate facet hypertrophy is seen. Moderate to severe bilateral neuroforaminal na rrowing can be seen. Moderate central canal narrowing is seen. Associated mass effect is seen upon the ventral spinal cord. C5-C6: Moderate loss of disc height and signal are seen. Moderate disc osteophyte complex is seen, w ith a central disc osteophyte protrusion. Moderate facet hypertrophy is seen. Moderate to severe sukhjinder ateral neuroforaminal narrowing can be seen, left worse than right. Moderate central canal narrowing is seen. Associated mass effect is seen upon the ventral spinal cord. C6-C7: At least moderate loss of disc height and disc signal can be seen. Moderate disc osteophyte complex is seen. Uncovertebral joint hypertrophy is seen at this level. Mild to moderate facet hyp ertrophy is seen. Moderate to severe bilateral neuroforaminal narrowing can be seen. Mild to moderate central canal narrowing is seen at this level. C7-T1: Moderate loss of disc height and signal are seen. Moderate disc osteophyte complex is seen. Moderate facet hypertrophy is seen. There is at least moderate bilateral neuroforaminal narrowing se en. Mild to moderate central canal narrowing can be seen. 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 Reviewed by: Harjit Dumont MD on 09/12/2022 5:06 PM [facility] Approved by: Harjit Dumont MD on 09/12/2022 5:06 PM [facility] Station ID: [id number]
== END 2022-09-12 08:53 | disposition home or self-care (01) ==
LOC: DI 08:52
PROVIDERS: ATTEND Internal Medicine
DX: M47.22 Other spondylosis with radiculopathy, cervical region (principal)

== ENCOUNTER 2022-10-22 09:52 | Outpatient (CLI) | payer MEDICARE ==
[2022-10-22 10:23] LABS: BUN - BLOOD UREA NITROGEN 11 mg/dL (6-20); CALCIUM 9.5 mg/dL (8.5-10.3); CARBON DIOXIDE - CO2 34 mmol/L (21-32); CHLORIDE 101 mmol/L (101-111); CHOL/HDL RATIO 2.7 (<5.0); CHOLESTEROL 114 mg/dL; GFR - MDRD 72 (>89); GLUCOSE 100 mg/dL (74-104); HDL CHOLESTEROL 42 mg/dL; LDL CHOLESTEROL,CALCULATED 53 mg/dL; LDL/HDL RATIO 1.3 (<3.6); POTASSIUM 4.1 mmol/L (3.5-4.5); SODIUM 138 mmol/L (135-145); TRIGLYCERIDES 94 mg/dL (48-352); VLDL CHOLESTEROL 19 mg/dL
== END 2022-10-22 09:53 | disposition home or self-care (01) ==
LOC: LAB 09:52
PROVIDERS: ATTEND Internal Medicine Interventional Cardiology
DX: I25.10 Atherosclerotic heart disease of native coronary artery without angina pectoris (principal); E78.5 Hyperlipidemia, unspecified
CPT/HCPCS: 36415; 80048; 80061; 83721

== ENCOUNTER 2023-05-01 11:00 | Outpatient (CLI) | payer MEDICARE ==
--- NOTE | 2023-05-01 17:57 | XRAY Report ---
PROCEDURE: Foot 3+V RT INDICATIONS: FOOT PAIN, RIGHT TECHNIQUE: 3 views of the foot were acquired. COMPARISON: None FINDINGS: Bones: No fractures or dislocations. Normal alignment on nonweightbearing view. 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 No suspicious bony lesions. Soft tissues: No tibiotalar joint effusion. Achilles tendon appears normal. Small plantar calcanea l enthesophyte. IMPRESSION: 1.No acute osseous abnormality. If clinical symptoms persist, consider repeat radiograph in 10-14 day s versus cross-sectional imaging. 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 Reviewed by: Davis Noriega MD on 05/01/2023 5:56 PM PST Approved by: Davis Noriega MD on 05/01/2023 5:56 PM PST Station ID: [id number]
--- NOTE | 2023-05-01 17:58 | XRAY Report ---
PROCEDURE: Ankle 3+V RT INDICATIONS: ANKLE PAIN, RIGHT TECHNIQUE: 3 views of the ankle were acquired. COMPARISON: None. FINDINGS: Bones: No fractures or dislocations. Ankle mortise is normally aligned on nonweightbearing view. N o suspicious bony lesions. Soft tissues: No tibiotalar joint effusion. Achilles tendon appears normal. IMPRESSION: No acute bony abnormality. If there remains a high clinical concern for fracture, consider cross-sect ional imaging now. If pain persists, consider repeat x-ray in 10-14 days or cross-sectional imaging. Reviewed by: Davis Noriega MD on 05/01/2023 5:56 PM PST Approved by: Davis Noriega MD on 05/01/2023 5:56 PM PST Station ID: [id number]
== END 2023-05-01 11:15 | disposition home or self-care (01) ==
LOC: DI.N 11:00
PROVIDERS: ATTEND Family Medicine
DX: M19.071 Primary osteoarthritis, right ankle and foot (principal)